=== PATIENT | male | born 1980 | race Caucasian/White ===

== ENCOUNTER 2016-12-12 20:01 | Emergency (ER) | payer BC ==
[~2016-12-12] VITALS: Ht 190.5 cm; Wt 94.1 kg
[2016-12-12 20:04] VITALS: BP 124/74; TEMP 97.5
[2016-12-12] MEDS ORDERED: CEPHALEXIN500 M1 PO (21:41)
[2016-12-12 21:55] VITALS: PULSE 81
== END 2016-12-12 21:57 | disposition home or self-care (01) ==
LOC: COL.ER 20:01
DX: S61.411A Laceration without foreign body of right hand, initial encounter (principal); Z23 Encounter for immunization; W26.0XXA Contact with knife, initial encounter; Y93.K9 Activity, other involving animal care

== ENCOUNTER 2020-10-19 13:30 | Emergency (ER) | payer OTHER ==
[~2020-10-19] VITALS: Ht 190.5 cm; Wt 104.5 kg
[~2020-10-19 13:30] MED LIST: CEPHALEXIN500 M1 PO
[2020-10-19 13:46] VITALS: BP 144/91; TEMP 98
[2020-10-19] MEDS ORDERED: MEDROL 4MG DOSPA4 MG PO (14:18)
[2020-10-19 14:44] VITALS: PULSE 88
== END 2020-10-19 14:44 | disposition home or self-care (01) ==
LOC: COL.ER 13:30
DX: U07.1 COVID-19 (principal); L50.9 Urticaria, unspecified; F17.200 Nicotine dependence, unspecified, uncomplicated; Z79.2 Long term (current) use of antibiotics
CPT/HCPCS: J1100

== ENCOUNTER 2022-06-18 02:22 | Emergency (ER) | payer OTHER ==
[~2022-06-18] VITALS: Ht 185.4 cm; Wt 113.6 kg
[~2022-06-18 02:22] MED LIST changes: +MEDROL 4MG DOSPA4 MG PO
[2022-06-18 02:24] VITALS: TEMP 98
[2022-06-18 02:55] VITALS: BP 129/66; PULSE 65
== END 2022-06-18 03:19 | disposition home or self-care (01) ==
LOC: COL.ER 02:22
DX: S89.91XA Unspecified injury of right lower leg, initial encounter (principal); Z28.310 Unvaccinated for COVID-19; V86.95XA Unspecified occupant of 3- or 4- wheeled all-terrain vehicle (ATV) injured in nontraffic accident, initial encounter
CPT/HCPCS: L1846